=== PATIENT | female | born 1990 | race Caucasian/White ===

== ENCOUNTER → 2016-12-24 | Outpatient (CLI) | payer OTHER ==
[2016-12-24 15:24] LABS: Appearance,Urine Cloudy (Clear); Bacteria,Urine Rare /hpf; Bilirubin,Urine Negative (Negative); Glucose,Urine (UA) Negative (Negative); Ketones,Urine Negative (Negative); Leukocyte Esterase,Urine Large (Negative); Mucus,Urine Rare /hpf; Nitrite,Urine Negative (Negative); Particle Count 17683; Protein,Urine Trace (Negative); RBC,Urine 27 /hpf (0-5); Specific Gravity,Urine 1.021 (1.001-1.035); Squamous Epithelial Cell,Urine 2 /hpf (0-4); UA Billing (MACRO vs. MICRO) MICRO; Urobilinogen,Urine <2.0 mg/dL (<2.0); WBC,Urine 123 /hpf (0-5)
== END | disposition home or self-care (01) ==
LOC: LABMAIN 15:00
PROVIDERS: ATTEND Family Medicine
DX: R30.0 Dysuria (principal)
CPT/HCPCS: 81001; 87077; 87086; 87186

== ENCOUNTER → 2020-04-14 | Outpatient (CLI) | payer OTHER ==
[2020-04-14 09:22] LABS: Basophils % (A) 1 %; Eosinophils # (A) 0.1 k/uL (0-0.7); Eosinophils % (A) 1 %; HGB 14.3 gm/dL (11.4-16.0); Lymphocytes # (A) 1.6 k/uL (1.0-4.8); Lymphocytes % (A) 36 %; MCH 30.4 pg (25.0-35.0); MCHC 33.2 g/dL (31.0-37.0); MCV 91.6 fL (80.0-100.0); Mean Platelet Volume 7.9; Monocytes # (A) 0.2 k/uL (0-1.0); Monocytes % (A) 5 %; Neutrophils # (A) 2.4 k/uL (1.3-7.7); Neutrophils % (A) 55 %; Platelet Count 221 k/uL (150-450); WBC 4.4 k/uL (3.8-10.6)
== END | disposition home or self-care (01) ==
LOC: LABPAT 08:42
PROVIDERS: ATTEND Obstetrics & Gynecology
DX: Z01.818 Encounter for other preprocedural examination (principal); N93.8 Other specified abnormal uterine and vaginal bleeding; N84.0 Polyp of corpus uteri
CPT/HCPCS: 85025

== ENCOUNTER 2020-04-20 09:05 | Day surgery (SDC) | payer OTHER ==
[2020-04-16 11:40] VITALS: BMI 23.5
[~2020-04-20 09:05] MED LIST: DEXAMETHASONE SOD PHOSPHATE 4 MG/ML 1 ML VIAL IV ONE; HYDROmorphone 0.5 MG/0.5 ML SYRINGE IVP PRN; LACTATED RINGERS 1,000 ML IV SCH; LIDOCAINE 1% (10MG/ML) FOR IV START INTRADERMA PRN; MIDAZOLAM 2 MG/2 ML VIAL IV PRN; ONDANSETRON 4 MG/2 ML VIAL IVP ONE; Pre Op ABX Message 1 EACH MISC MISCELLANE ONE
[2020-04-20] MEDS ORDERED: MIDAZOLAM 2 MG/2 ML VIAL IVP ONE (10:10)
[2020-04-20] MEDS ORDERED: LIDOCAINE 1% INJ 10MG/ML (20 ML MDV) ONE (10:48)
[2020-04-20] MEDS ORDERED: MIDAZOLAM 2 MG/2 ML VIAL ONE (10:48)
[2020-04-20] MEDS ORDERED: fentaNYL (PF) 50 MCG/ML 2 ML AMP ONE (10:48)
[2020-04-20] MEDS ORDERED: PROPOFOL 10 MG/ML 20 ML VIAL IV ONE (10:48)
[2020-04-20] MEDS ORDERED: KETOROLAC 15 MG/ML 1 ML VIAL ONE (10:48)
[2020-04-20] MEDS ORDERED: SORBITOL 3% IRRIGATION 3,000 ML IRRIGATION ONE (11:21)
[2020-04-20] MEDS ORDERED: SIMETHICONE 80 MG CHEWABLE PO PRN (11:29)
[2020-04-20] MEDS ORDERED: METOCLOPRAMIDE 5 MG/ML 2 ML VIAL IVP PRN (11:29)
[2020-04-20] MEDS ORDERED: Acetaminophen-Codeine 300-30mg TAB PO PRN ×2 (11:29)
[2020-04-20] MEDS ORDERED: KETOROLAC 15 MG/ML 1 ML VIAL IVP PRN (11:29)
[2020-04-20] MEDS ORDERED: ONDANSETRON 4 MG/2 ML VIAL IVP PRN (11:29)
[2020-04-20] MEDS ORDERED: IBUPROFEN 600 MG TAB PO PRN (11:29)
[2020-04-20] MEDS ORDERED: LACTATED RINGERS 1,000 ML IV SCH (11:30)
--- NOTE | 2020-04-20 11:36 | P.OP ---
Date of Procedure: 04/20/20 Preoperative Diagnosis: #1. Dysfunctional uterine bleeding #2. Probable endometrial polyp Postoperative Diagnosis: Same Procedure(s) Performed: 1. Diagnostic hysteroscopy #2. Endometrial polypectomy #3. Dilation and curettage Anesthesia: other (Gen. by facemask) Surgeon: Curt Lynch Estimated Blood Loss (ml): 5 IV fluids (ml): 100 Urine output (ml): 30 Pathology: other (Endometrial curettings with probable endometrial polyp) Condition: stable Disposition: PACU Operative Findings: Gravid pelvic examination demonstrated a roughly 4-5 week anteverted mobile normal shaped uterus with normal adnexa bilaterally. Intraoperatively, the uterus sounded to approximately 8 cm. Using the hysteroscope, there was a clear polypoid structure noted emanating from the posterior low fundal wall. Otherwise, the bilateral tubal ostia were seen and there was no apparent pathology. The polyp did appear to be entirely removed using the polyp forceps. Description of Procedure: The patient was prepped and draped in usual fashion after general anesthesia was admission by the anesthesiologist. A weighted speculum was placed in the bladder draining approximately 30 mL of clear aliyah urine. The anterior lip the cervix was grasped with a signal 2 tenaculum and uterus sounded to 8 cm as noted above. Serial dilation was carried out to admit the diagnostic hysteroscope which was placed in the cavity and the cavity distended with sorbitol. The findings are as noted above with a clear and obvious polypoid structure emanating from the posterior low fundal wall. There was no other evidence of pathology in the cavity. The scope was then set aside in favor of a polyp forceps which was utilized to probe for and find the polyp which was removed and appeared to be intact. Several further passes were made with polyp forceps at which time there was no significant tissue recovered. The forceps were then set aside in favor of a small sharp endometrial curet which was utilized to thoroughly and circumferentially curet the endometrial contents onto a Telfa placed in the vagina. The typical gritty texture was encountered throughout. No significant further tissue was noted. All instrument H was then removed. Estimated blood loss for the entire case was less than 5 mL. There were no complications. All sponge, instrument, needle counts were correct. The patient tolerated the procedure well and proceeded to the recovery room in stable condition.
[2020-04-20 11:43] VITALS: TEMP 97.6
[2020-04-20 11:48] VITALS: RESP 16
[2020-04-20 12:08] VITALS: BP 114/75; PULSE 72
== END 2020-04-20 12:36 | disposition home or self-care (01) ==
LOC: OR 09:05
PROVIDERS: ATTEND Obstetrics & Gynecology
DX: N84.0 Polyp of corpus uteri (principal); F90.9 Attention-deficit hyperactivity disorder, unspecified type; Z88.8 Allergy status to other drugs, medicaments and biological substances; Z79.899 Other long term (current) drug therapy; Z98.890 Other specified postprocedural states; Z82.49 Family history of ischemic heart disease and other diseases of the circulatory system; Z83.438 Family history of other disorder of lipoprotein metabolism and other lipidemia
CPT/HCPCS: 81025; 88305; 58558; J2250; J1100; J2405; J2001; J3010; J1885; J2704